=== PATIENT | female | born 1955 | race Caucasian/White ===

== ENCOUNTER → 2017-08-31 | Outpatient (CLI) | payer OTHER | LOC: CIMAGING 09:32 | PROVIDERS: ATTEND Family Medicine | DX: Z12.31 Encounter for screening mammogram for malignant neoplasm of breast (principal) ==

== ENCOUNTER 2018-03-26 11:10 | Emergency (ER) | payer OTHER ==
[2018-03-26 11:18] VITALS: BP 159/93
--- NOTE | 2018-03-26 11:39 | EDPHY ---
H & P Time Seen by Provider: 03/26/18 11:13 HPI/ROS: HPI Diarrhea. 62-year-old female by private vehicle with her . This patient reports that on Tuesday evening she developed watery diarrhea with some blood streaked in it. She reports that she then felt better on Tuesday. She reports however this morning she has had 8 loose watery stools with some blood streaking in the arm. She denies any significant abdominal discomfort. She has had no nausea or vomiting. She is eating normally and drinking Gatorade. No urinary complaints. No fever. She denies any history of foreign travel. No ill contacts. She ate at a [employer] restaurant on Tuesday afternoon. She does report that she had a urinary tract infection 2-3 weeks ago and her daughter had a left over antibiotic and gave this to her to treat her urinary tract infection. Her daughter is not a health care provider. This antibiotic was clindamycin. She reports that she took it for several days. ROS: Constitutional: No fever, no chills. No weakness. Eyes: No discharge. No changes in vision. ENT: No sore throat. No nasal congestion or rhinorrhea. Respiratory: No cough. No shortness of breath. Cardiac: No chest pain, no palpitations. Gastrointestinal: No abdominal pain, no vomiting, as above. Genitourinary: No hematuria. No dysuria or increased frequency with urination. Musculoskeletal: No back pain. No neck pain. No myalgias or arthralgias. Skin: No rashes. Neurological: No headache. No focal weakness or altered sensation. Past medical history: She denies any past medical history and is not on any prescription medications other than noted above. Social history: Nonsmoker. No alcohol. She is here with her . Physical Exam: General Appearance: Alert, no distress. This patient is responding to questions appropriately and in full sentences. This patient appears well- hydrated and well-nourished. Eyes: Pupils equal and round no pallor or injection. No lid edema, erythema or injection. Respiratory: There are no retractions, lungs are clear to auscultation with good air movement bilaterally. Cardiovascular: Regular rate and rhythm. No murmur. Gastrointestinal: Abdomen is soft and nontender on deep palpation throughout, no masses, bowel sounds normal. No focal tenderness at McBurney's point. No Valera sign. Neurological: Motor sensory function is grossly intact. Cranial nerves are normal. Gait is normal. Skin: Warm and dry, no rashes. Musculoskeletal: Neck is supple and nontender. Extremities are symmetrical. All joints range without pain or impingement. Psychiatric: No agitation. No depression. Database: EKG: Imaging: Procedures: Emergency department course: Vital signs reviewed. She is moderately hypertensive. Vital signs are otherwise normal. She is afebrile. Patient's presentation is consistent with a viral enteritis verses entero toxigenic/hemorrhagic E coli infection. Secondary to the history of clindamycin use, C diff colitis is also considered but she does not have a fever, does not appear toxic and does not have any abdominal pain. Plan at this time will be supportive with oral hydration. We will obtain a stool study from her and this will be sent to the [facility] lab to be analyzed. She will follow up with her primary care physician Dr. Pro who is in this building on Tuesday or Tuesday of this coming week for re- evaluation and review of her stool study results. She feels comfortable with this plan. She has a benign abdomen. She understands for follow-up. Return to emergency department precautions were discussed with her and her . All of their questions were answered. The patient was discharged in good condition with her . Differential Diagnosis: The differential diagnosis on this patient includes but is not limited to viral enteritis, bacterial enteritis, early C diff colitis. Diverticulitis unlikely. This represents a partial list of diagnoses considered. These considerations are based on history, physical exam, past history, reassessment and diagnostic testing. Smoking Status: Former smoker Constitutional: Initial Vital Signs Temperature (C) 36.9 C 03/26/18 11:16 Heart Rate 81 03/26/18 11:16 Respiratory Rate 18 03/26/18 11:16 Blood Pressure 159/93 H 03/26/18 11:16 O2 Sat (%) 95 03/26/18 11:16 O2 Delivery Mode Room Air Allergies/Adverse Reactions: No Known Allergies Allergy (Unverified 03/26/18 11:16) Home Medications: Medication Instructions Recorded NO HOME MEDS 10/14/09 Departure - Departure Disposition: Home, Routine, Self-Care Clinical Impression: Diarrhea, Enteritis Condition: Good Instructions: Acute Diarrhea (ED), Enteritis (ED) Additional Instructions: Read and follow provided instructions. Follow-up with your primary care physician in 1-2 days for re-evaluation as discussed. We will arrange to have your stool sample sent to our [facility] lab for analysis. These results should be available Tuesday afternoon or Tuesday if you get us the stool sample today. Continue oral hydration with water and electrolyte drinks such as Gatorade. Return to the emergency department for worsening symptoms, worsening abdominal pain, fever, rectal bleeding, vomiting or other serious concerns. Referrals: Eleonora Pro DO [Primary Care Provider] - As per Instructions
== END 2018-03-26 11:50 | disposition home or self-care (01) ==
LOC: CED 11:10
DX: A04.72 Enterocolitis due to Clostridium difficile, not specified as recurrent (principal)